=== PATIENT | female | born 1965 | race Caucasian/White ===

== ENCOUNTER 2016-11-05 12:54 | Emergency (ER) | payer OTHER ==
[~2016-11-05] VITALS: Ht 162.6 cm; Wt 86.2 kg
[~2016-11-05 12:54] MED LIST: AMBIEN5 MG ORAL; AMOXICILLIN500 MG ORAL; ATARAX25 MG ORAL; BENADRYL ALLERG25 M1 PO; CENTRUM ULTRA1 EACH PO; CEPHALEXIN500 MG ORAL; COLACE100 MG ORAL; DOXEPIN HCL10 MG ORAL; HARVONI 90-4001 EACH PO; KENALOG 0.1% CR15 GM APPLIC; LISINOPRIL5 MG ORAL; LOPID600 MG ORAL; MACROBID100 MG ORAL; METFORMIN HCL500 M1 ORAL; NORCO 5-325 TA1 EACH ORAL; NORCO 5-325 TA1 EACH PO; OMEPRAZOLE20 M2 ORAL; PREDNISONE20 M1 PO; TRAZODONE HCL50 MG PO
[2016-11-05] MEDS ORDERED: SERTRALINE HCL25 MG ORAL (13:08)
[2016-11-05] MEDS ORDERED: Cephalexin 500mg cap ORAL ONE (13:30)
[2016-11-05] MEDS ORDERED: LORazepam 1mg tab ORAL ONE (13:30)
--- NOTE | 2016-11-05 13:49 | Emergency Room Report ---
History of Present Illness General Chief Complaint: Edema Source: Patient Present Illness HPI Patient is a 51-year-old female who presented after increased emotional upset after using methamphetamine in the morning. Patient stated that she had recently had a use a small amount methamphetamine as well as alcohol yesterday. Patient has not been any fever. As reported having increased pain swelling to both legs. She had any recent surgery or prior malignancy. Allergies: Coded Allergies: PENICILLINS (Verified Allergy, Severe, Itching, 07/19/15) Hives PREDNISONE (Verified Allergy, Severe, Hives, 11/05/14) GEMFIBROZIL (Unverified Adverse Reaction, Severe, Anaphylaxis, 11/05/14) Uncoded Allergies: Prazo (Allergy, Severe, Rash, 11/05/14) Patient History Past Medical History: see triage record Last Menstrual Period: n/a Reviewed Nursing Documentation: PMH: Agreed, PSxH: Agreed Nursing Documentation-PMH Hx Hypertension: Yes Hx Asthma: Yes Hx Diabetes: Yes Review of Systems All Other Systems: negative except mentioned in HPI Physical Exam Vital Signs Date Time Temp Pulse Resp B/P Pulse Ox O2 Delivery O2 Flow Rate FiO2 11/05/16 12:57 99.3 117 20 142/93 97 Room Air Sp02 EP Interpretation: reviewed, normal General Appearance: normal inspection, well appearing, no apparent distress, alert, GCS 15 Head: atraumatic ENT: normal ENT inspection, hearing grossly normal, normal voice Neck: normal inspection, full range of motion, supple, no bony tend Respiratory: normal inspection, lungs clear, normal breath sounds, no respiratory distress, no retraction, no wheezing Cardiovascular #1: regular rate, rhythm, edema - trace edema, bilaterally Gastrointestinal: normal inspection, normal bowel sounds, non tender, soft, no guarding, no hernia Genitourinary: no CVA tenderness Musculoskeletal: normal inspection, back normal, normal range of motion Neurologic: normal inspection, alert, oriented x3, responsive, medical sales representative III-XII nml as tested, speech normal Psychiatric: normal inspection, judgement/insight normal, mood/affect normal Skin: normal inspection, normal color, no rash Medical Decision Making Diagnostic Impression: Primary Impression: Rash and nonspecific skin eruption Additional Impression: Methamphetamine abuse ER Course Patient presented for leg swelling. Differential diagnosis included was not limited to cellulitis, DVT, abscess, congestive heart failure , necrotizing fasciitis among others. The patient appears to have a mild cellulitis to her right leg. This may represent an allergic reaction however patient is being treated with antibiotics orally.The patient is advised to follow up with primary care doctor in 1-2 days. Patient is advised to return if any worsening condition or if any changes in status that are concerning. Last Vital Signs Date Time Temp Pulse Resp B/P Pulse Ox O2 Delivery O2 Flow Rate FiO2 11/05/16 12:57 99.3 117 20 142/93 97 Room Air Status: improved Disposition: HOME, SELF-CARE Condition: Stable Scripts Cephalexin* (KEFLEX*) 500 Mg Capsule 500 MG ORAL EVERY 6 HOURS, #28 CAP Prov: Terrance Mcgowan 11/05/16 Hydroxyzine HCl (Hydroxyzine HCl) 25 Mg Tab 25 MG ORAL TID, #30 TAB Prov: Terrance Mcgowan 11/05/16 Referrals: [facility],REFERRING (PCP) Terrance Mcgowan November 05, 2016 13:49
[2016-11-05 13:55] VITALS: BP 142/93
[2016-11-05] MEDS ORDERED: CEPHALEXIN500 MG ORAL (14:27)
[2016-11-05] MEDS ORDERED: ATARAX25 MG ORAL (14:27)
[2016-11-05 14:43] VITALS: BP 140/87
[2016-11-05 14:44] VITALS: BP 140/87
== END 2016-11-05 15:17 | disposition home or self-care (01) ==
LOC: EMR 13:45
DX: R21 Rash and other nonspecific skin eruption (principal); Z88.0 Allergy status to penicillin; Z88.8 Allergy status to other drugs, medicaments and biological substances; I10 Essential (primary) hypertension; E11.9 Type 2 diabetes mellitus without complications; J45.909 Unspecified asthma, uncomplicated; F15.10 Other stimulant abuse, uncomplicated; M79.89 Other specified soft tissue disorders
CPT/HCPCS: 99284